=== PATIENT | female | born 1955 | race Caucasian/White ===

== ENCOUNTER → 2019-05-08 | Outpatient (REF) | LOC: M LAB LCGH 15:31 | PROVIDERS: ATTEND Nurse Practitioner Family | DX: C44.01 Basal cell carcinoma of skin of lip (principal) ==

== ENCOUNTER → 2020-08-15 | Outpatient (REF) | payer OTHER | LOC: M LAB REF 14:43 | PROVIDERS: ATTEND Physician Assistant | DX: D04.9 Carcinoma in situ of skin, unspecified (principal) ==

== ENCOUNTER → 2022-11-24 | Outpatient (REF) | payer MEDICARE, OTHER | LOC: M SFHCDERM 14:20 | PROVIDERS: ATTEND Physician Assistant | DX: C44.310 Basal cell carcinoma of skin of unspecified parts of face (principal) ==

== ENCOUNTER → 2023-09-07 | Outpatient (REF) | payer OTHER, MEDICARE | LOC: M SFHCDERM 15:55 | PROVIDERS: ATTEND Physician Assistant | DX: D48.9 Neoplasm of uncertain behavior, unspecified (principal) ==